=== PATIENT | female | born 1970 | race Hispanic/Latino ===

== ENCOUNTER 2024-12-08 18:34 | Observation (INO) | payer OTHER ==
[~2024-12-08] VITALS: Ht 149.9 cm; Wt 68.0 kg
[2024-12-08 19:00] VITALS: TEMP 98.2
[2024-12-08 19:35] LABS: BASOPHILS % 0.5 % (0.0-1.0); EOSINOPHILS % 2.0 % (0.0-6.0); LYMPHOCYTES % 28.9 % (18.0-39.1); MONOCYTES % 7.1 % (4.4-11.3); NEUTROPHILS % 61.4 % (38.7-80.0); RED CELL DISTRIBUTION WIDTH 13.9 % (11.7-14.4)
[2024-12-08 19:56] LABS: EST GLOMERULAR FILTRATION RATE 105.0 ML/MIN (>=60)
[2024-12-08] MEDS ORDERED: IOPAMIDOL 370 MG/ML 100 ML INFUS..BTL INJ ONE (20:12)
[2024-12-08 21:46] VITALS: PULSE 61; RESP 16
[2024-12-08] MEDS ORDERED: ONDANSETRON HCL INJ 2MG/ML 2ML 2 MG/ML VIAL IV PRN (22:15)
[2024-12-08] MEDS ORDERED: Morphine 4mg INJECTION 4 MG/ML INJ IV PRN (22:15)
[2024-12-08] MEDS: SODIUM CHLORIDE 0.9% 1000ML 1,000 ML IV SCH (22:22)
[2024-12-08 23:00] VITALS: BP 142/68; PULSE 61; RESP 18; TEMP 97.7; O2SAT 100
[2024-12-08 23:45] VITALS: BP 138/73; PULSE 68; RESP 19; TEMP 98; O2SAT 97
[2024-12-09] VITALS (7 sets, daily range): BP systolic 118–138; BP diastolic 63–73; PULSE 61–70; RESP 17–20; TEMP 97.9–98.3; O2SAT 97–100
[2024-12-09] MEDS ORDERED: METFORMIN HCL500 MG PO (01:32)
[2024-12-09] MEDS ORDERED: ATORVASTATIN CA20 MG PO (01:34)
[2024-12-09 06:16] LABS: BASOPHILS % 0.5 % (0.0-1.0); EOSINOPHILS % 4.0 % (0.0-6.0); LYMPHOCYTES % 28.0 % (18.0-39.1); MONOCYTES % 8.3 % (4.4-11.3); NEUTROPHILS % 58.7 % (38.7-80.0); RED CELL DISTRIBUTION WIDTH 14.0 % (11.7-14.4)
[2024-12-09 06:47] LABS: EST GLOMERULAR FILTRATION RATE 107.0 ML/MIN (>=60)
[2024-12-09] MEDS ORDERED: PROCHLORPERAZINE EDISYLATE 5 MG/ML VIAL IV PRN (18:00)
[2024-12-09 19:19] LABS: CHOL/HDL RATIO 4.6 (3.0-3.6); LDL CHOLESTEROL 132.0 MG/DL (60-130)
[2024-12-09] MEDS: ATORVASTATIN 40 MG TAB PO SCH (21:14)
[2024-12-10] VITALS: BP 130/68; PULSE 71; RESP 20; TEMP 97.8; O2SAT 100
[2024-12-10] MEDS ORDERED: HYDRALAZINE HCL 20 MG/ML VIAL IV PRN (02:45)
[2024-12-10] MEDS ORDERED: DOCUSATE SODIUM 100 MG CAP PO PRN (02:45)
[2024-12-10] MEDS ORDERED: MELATONIN 3 MG TAB PO PRN (02:45)
[2024-12-10] MEDS ORDERED: DEXTROSE 50% SYRINGE 50 ML IV PRN (02:45)
[2024-12-10] MEDS ORDERED: MAGNESIUM/ALUMINUM/SIMETHICONE 30 ML UDC PO PRN (02:45)
[2024-12-10 04:00] VITALS: BP 110/60; PULSE 72; RESP 20; TEMP 97.7; O2SAT 100
[2024-12-10] MEDS: INSULIN REGULAR, HUMAN 100 UNIT/1 ML SQ SCH (07:30)
[2024-12-10 08:14] VITALS: BP 125/75; PULSE 75; RESP 18; TEMP 98.6; O2SAT 96
[2024-12-10 09:00] VITALS: BP 125/75; PULSE 75; RESP 18; TEMP 98.6; O2SAT 96
[2024-12-10] MEDS: GUAIFENESIN/DEXTROMETHORPHAN LIQD 5 ML UDC PO PRN (09:03)
[2024-12-10] MEDS: MULTIVITAMINS/MINERALS TAB PO SCH (09:04)
[2024-12-10] MEDS: ACETAMINOPHEN 325 MG TAB PO PRN (09:04)
[2024-12-10] MEDS: ASPIRIN 81 MG ENTERIC COATED PO SCH (09:04)
[2024-12-10 15:45] VITALS: BP 142/86; PULSE 80; RESP 17; TEMP 98.1; O2SAT 100
[2024-12-10] MEDS ORDERED: ASPIRIN EC81 MG PO (15:46)
== END 2024-12-10 16:20 | disposition home or self-care (01) ==
LOC: ER 18:46 → ERHOLD 22:10 → MED/SURG3 23:48
PROVIDERS: ADMIT Internal Medicine; ATTEND Internal Medicine
DX: G43.109 Migraine with aura, not intractable, without status migrainosus (principal); H53.8 Other visual disturbances; R20.0 Anesthesia of skin; I10 Essential (primary) hypertension; E11.9 Type 2 diabetes mellitus without complications; Z79.4 Long term (current) use of insulin; E78.5 Hyperlipidemia, unspecified
CPT/HCPCS: 36415 ×2; 70496; 70498; 70551; 71045; 80053 ×2; 80061; 82550 ×3; 82948; 83036; 83690; 83880; 84484 ×3; 85025 ×2; 86140; 93005; 93306; 95812; 97116; 97161; 99284; G0378 ×3; J7030 ×3; Q9967